=== PATIENT | male | born 1970 | race Caucasian/White ===

== ENCOUNTER → 2024-01-07 | Outpatient (REF) | LOC: M PLAIMG 08:53 | PROVIDERS: ATTEND Internal Medicine | DX: M54.9 Dorsalgia, unspecified (principal) ==

== ENCOUNTER → 2024-11-11 | Outpatient (CLI) | payer OTHER ==
[~2024-11-11] MED LIST: B-12100010 PO; CLOM50TA28 PO; CYPR4TAB41 PO; E-Z-GAS II EFFERVESCENT PACKET (SODIUM BICARB./CITRIC ACID/SIMETHICONE) As Ordered ONE; E-Z-HD 98% w/w 340GM SUSP BTL As Ordered ONE; E-Z-PAQUE 96% w/w SUSP 176GM BTL As Ordered ONE; ESZO1TAB6 PO; LEXA1TAB PO; LISI30TA4 PO; MELA5TAB47 PO; PROP20TA72 PO; PROP40TA62 PO; ROSU20TA86 PO; TIRZ7.5P3 SQ
== END ==
LOC: M RAD 10-08 08:33
PROVIDERS: ATTEND Surgery
DX: R13.10 Dysphagia, unspecified (principal)

== ENCOUNTER 2024-11-28 08:42 | Day surgery (SDC) | payer OTHER ==
[~2024-11-28] VITALS: Ht 172.7 cm; Wt 99.3 kg
[~2024-11-28 08:42] MED LIST changes: -E-Z-GAS II EFFERVESCENT PACKET (SODIUM BICARB./CITRIC ACID/SIMETHICONE) As Ordered ONE; -E-Z-HD 98% w/w 340GM SUSP BTL As Ordered ONE; -E-Z-PAQUE 96% w/w SUSP 176GM BTL As Ordered ONE
[2024-11-28] MEDS ORDERED: LIDOCAINE 2% 100MG/5ML SDV (FOR ANES.) As Ordered ONE (10:42)
[2024-11-28] MEDS ORDERED: propofoL 200 MG/20 ML VIAL As Ordered ONE (10:42)
[2024-11-28 10:45] VITALS: TEMP 98.3
[2024-11-28 11:00] VITALS: BP 116/70; O2SAT 96
== END 2024-11-28 11:08 | disposition home or self-care (01) ==
LOC: M OPP 08:42
PROVIDERS: ATTEND Surgery
DX: K29.50 Unspecified chronic gastritis without bleeding (principal); K44.9 Diaphragmatic hernia without obstruction or gangrene; R13.10 Dysphagia, unspecified; G47.30 Sleep apnea, unspecified; Z79.85 Long-term (current) use of injectable non-insulin antidiabetic drugs; Z79.899 Other long term (current) drug therapy; Z87.891 Personal history of nicotine dependence